=== PATIENT | male | born 1955 | race Caucasian/White ===

== ENCOUNTER 2016-09-13 05:31 | Day surgery (SDC) | payer MEDICARE ==
[~2016-09-13] VITALS: Ht 182.9 cm; Wt 89.5 kg
[2016-09-13] MEDS ORDERED: ALTACE5 MG PO (06:38)
[2016-09-13] MEDS ORDERED: OMEPRAZOLE20 M1 PO (06:39)
[2016-09-13 06:40] VITALS: BP 118/66; Ht 182.9 cm; Wt 89.5 kg
[2016-09-13 07:12] LABS: BASOPHILS 0.3 % (0.0-2.0); EOSINOPHILS 1.7 % (0-7); HEMATOCRIT 37.7 % (42.0-54.0); HEMOGLOBIN 13.1 g/dL (13.5-17.5); IMMATURE GRANULOCYTES 0.3 % (0-5); LYMPHOCYTES 17.1 % (15-50); MCH 28.9 pg (26.0-34.0); MCHC 34.7 g/dL (31.0-37.0); MCV 83.2 fL (80.0-100.0); MEAN PLATELET VOLUME 10.9 fL (7.4-10.4); MONOCYTES 7.4 % (2-11); NEUTROPHILS 73.2 % (40-80); PLATELET COUNT 159 10x3/uL (130-400); RBC 4.53 10x6/uL (4.20-6.10); WBC 3.6 10x3/uL (4.8-10.8)
[2016-09-13 07:32] LABS: CALC OSMOLALITY 275 mosm/kg (275-300); CALCIUM 8.6 mg/dL (8.5-10.1); CARBON DIOXIDE 23.9 mmol/L (21.0-32.0); CHLORIDE - SERUM 104 mmol/L (98-107); GLUCOSE 117 mg/dL (74-106); POTASSIUM - SERUM 4.1 mmol/L (3.5-5.1); SODIUM 137 mmol/L (136-145); UREA NITROGEN 14 mg/dL (7-18); eGFR NON AFRICAN AMERICAN 81 mL/min (90-120)
--- NOTE | 2016-09-13 09:13 | NUR ---
IV DC WITH CATHER TIP INTACT
--- NOTE | 2016-09-17 09:57 | OP ---
PATIENT NAME: SALVADOR TALBERT MEDICAL RECORD: [id number] :55 LOCATION:D.OPS ADMISSION DATE: SURGEON: HANH RUBIO MD DATE OF OPERATION: 09/13/2016 REFERRED BY: Andrea Garcia MD PREOPERATIVE DIAGNOSIS: Referral for screening colonoscopy. POSTOPERATIVE DIAGNOSIS: Referral for screening colonoscopy. OPERATION PERFORMED: Colonoscopy to cecum. SURGEON: Hanh Rubio MD ANESTHESIA: TIVA with propofol per CARE NURSE RN. PREOPERATIVE NOTE: This 61-year-old generally healthy white male patient considered to be at low risk for colorectal carcinoma with a negative family history and no prior history of colon polyps or premalignant changes, had last screening colonoscopy about 10 years ago and he was referred back to me by Dr. Garcia for another screening exam today. He has completed his standard MiraLax bowel prep and will have TIVA per CARE NURSE RN. DESCRIPTION OF PROCEDURE: With the patient in lateral decubitus position, a digital rectal exam was done and this was normal, but perhaps some mild prostatic hypertrophy. There were no nodules, no masses, no perianal sepsis or hemorrhoidal thrombosis, etc. The Olympus colonoscope was then inserted and advanced to the cecum. The only difficulties encountered were some relative spasticity, particularly in the sigmoid and left colon segments. This was treated with an injection of 1 mg of glucagon, which did help immensely. From the cecum, the scope was slowly withdrawn and the prep was noted to be excellent and there was no mucosal lesions or polyps or other abnormalities identified. Photodocumentation of the cecum was made and within the rectum, the scope was retroflexed in the upper anal canal, lower rectum examined and these were normal as well. Insufflated air was suctioned away as the scope was then totally withdrawn. The patient tolerated the procedure well and will be discharged from the outpatient department when meets criteria. He will return to see me on a p.r.n. basis. He is instructed to call or come to see me should he have abdominal pain or have any other concerns or questions. He will continue all of the same medications as perDennis Garcia and resume a regular diet. 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
== END 2016-09-13 09:45 | disposition home or self-care (01) ==
LOC: D.OPS 05:31
PROVIDERS: Anesthesiology
DX: Z12.11 Encounter for screening for malignant neoplasm of colon (principal); K58.9 Irritable bowel syndrome, unspecified

== ENCOUNTER → 2019-02-24 09:51 | Outpatient (CLI) | payer MEDICARE ==
[2016-09-13 06:40] VITALS: BMI 26.7
[~2019-02-24 09:51] MED LIST: ALTACE5 MG PO; OMEPRAZOLE20 M1 PO
[2019-02-24 10:28] LABS: BASOPHILS 0.3 % (0-2); HEMATOCRIT 38.2 % (42.0-54.0); HEMOGLOBIN 13.7 g/dL (13.5-17.5); IMMATURE GRANULOCYTES 0.3 % (0-5); LYMPHOCYTES 19.7 % (15-50); MCH 29.3 pg (26.0-34.0); MCHC 35.9 g/dL (31.0-37.0); MCV 81.8 fL (80.0-100.0); MONOCYTES 11.1 % (2-11); NEUTROPHILS 65.6 % (40-80); PLATELET COUNT 161 10x3/uL (130-400); RBC 4.67 10x6/uL (4.20-6.10); RDW 13.1 % (11.5-14.5)
[2019-02-24 10:32] LABS: ALBUMIN 3.4 g/dL (3.4-5.0); ANION GAP 10.8 mmol/L (8-16); BILIRUBIN - TOTAL 0.63 mg/dL (0.2-1.3); CALCIUM 8.4 mg/dL (8.5-10.1); CARBON DIOXIDE 27.7 mmol/L (21.0-32.0); CHOL - HDL RATIO 3.6 ratio (2.3-4.9); CREATININE - SERUM 1.2 mg/dL (0.6-1.3); LDL-HDL RATIO 2.3 ratio (1.5-3.5); POTASSIUM - SERUM 4.5 mmol/L (3.5-5.1); PROTEIN - SERUM 7.3 g/dL (6.4-8.2)
== END | disposition home or self-care (01) ==
LOC: D.LAB 09:51
PROVIDERS: ATTEND Family Medicine
DX: Z00.00 Encounter for general adult medical examination without abnormal findings (principal); I10 Essential (primary) hypertension; G58.9 Mononeuropathy, unspecified; M79.609 Pain in unspecified limb

== ENCOUNTER → 2019-04-29 13:56 | Outpatient (CLI) | payer MEDICARE ==
[2016-09-13 06:40] VITALS: BMI 26.7
== END | disposition home or self-care (01) ==
LOC: D.LAB 13:56
PROVIDERS: ATTEND Family Medicine
DX: M12.9 Arthropathy, unspecified (principal); G58.9 Mononeuropathy, unspecified; I10 Essential (primary) hypertension